=== PATIENT | female | born 1970 | race Hispanic/Latino ===

== ENCOUNTER 2025-05-30 12:00 | Emergency (ER) | payer BC ==
[~2025-05-30] VITALS: Ht 152.4 cm; Wt 80.3 kg
[2025-05-30 12:29] LABS: IMMATURE GRANULOCYTE ABSOLUTE 0.02 K/uL (0-1); NUCLEATED RED BLOOD CELLS 0.0 % (0.0-0.19); PLATELET COUNT (AUTO) 280 K/uL (130-400); RED BLOOD CELL COUNT(AUTO) 4.42 MIL/uL (4.00-5.50); RED CELL DISTRIBUTION WIDTH 13.6 % (11.0-15.5); WHITE BLOOD COUNT (AUTO) 7.1 K/uL (4.8-10.8)
[2025-05-30 12:48] LABS: CREATININE 0.7 mg/dL (0.5-1.0); GLOMERULAR FILTR. RATE CALC 102.0 mL/min (>90); GLUCOSE,RANDOM 92.0 mg/dL (70-105); SODIUM SERUM 139.0 mmol/L (136-145); UREA NITROGEN, BLOOD 17.0 mg/dL (7-18)
[2025-05-30] MEDS: 0.9%NACL 1000ML 1,000 ML IV STA (13:25)
[2025-05-30 13:44] LABS: APPEARANCE,URINE CLEAR (CLEAR); GLUCOSE, URINE (UA) NEGATIVE (NEGATIVE); LEUKOCYTE ESTERASE ,URINE NEGATIVE Leu/uL (NEGATIVE); NITRATE,URINE NEGATIVE (NEGATIVE); OCCULT BLOOD,URINE NEGATIVE (NEGATIVE)
[2025-05-30 13:45] LABS: ADD UA MICROSCOPIC NO
[2025-05-30] MEDS ORDERED: IOHEXOL-350 75 ML VIAL IV ONE (14:33)
--- NOTE | 2025-05-30 16:13 | HMCIMG ---
EXAMINATION: CT Scan of the Abdomen and Pelvis With Contrast CLINICAL INDICATION: Lower abdominal pain. TECHNIQUE: CT of the abdomen and pelvis was performed following intravenous administration of contrast material. Axial images with multiplanar reformations were obtained. Delayed images at approximately 7 minutes were acquired to assess urinary excretion. COMPARISON: No prior studies are available for comparison. RADIATION DOSE: CTDIvol: 27.2 mGy DLP: 1559.40 mGycm Contrast dose: 75 mL of iodinated intravenous contrast administered. FINDINGS: Lung Bases: Bibasilar streaky atelectasis is noted. Liver: There is a calcific nodule in segment VII, consistent with a calcified granuloma. No focal enhancing hepatic lesion is identified. Gallbladder and Biliary System: Gallbladder is unremarkable. No biliary ductal dilatation is seen. Pancreas: A cystic lesion is present in the distal body of the pancreas measuring approximately 1.7 0.5 cm. No associated peripancreatic fat stranding or fluid collection is identified. The pancreatic duct is not dilated, and no intraductal calculi are seen. Spleen: A splenule measuring approximately 1.3 cm is identified. The spleen is otherwise unremarkable. Adrenal Glands: Both adrenal glands are unremarkable. Kidneys and Ureters: Both kidneys demonstrate normal size and enhancement. No renal calculi or hydronephrosis is identified. Delayed images demonstrate symmetric contrast excretion through both kidneys and ureters without hydroureteronephrosis. Abdominal Aorta: The abdominal aorta is unremarkable without evidence of aneurysm or dissection. Bowel: Scattered colonic diverticula are present without evidence of diverticulitis. No bowel obstruction is identified. Appendix: The appendix measures approximately 6 mm in diameter without imaging features of acute appendicitis (series 2, image 53 of 106). Mesentery and Lymph Nodes: Few mildly enlarged mesenteric lymph nodes are seen, measuring up to 6 mm, demonstrating homogeneous enhancement. Pelvic Viscera: The uterus is surgically absent. The adnexa are unremarkable. Bones: Degenerative changes are present in the spine. There is mild retrolisthesis of L5 over S1. IMPRESSION: * No acute intra-abdominal fluid collection/fat stranding/urolithiasis. * Cystic lesion in the distal body of the pancreas measuring 1.7 0.5 cm, without associated inflammatory changes or pancreatic ductal dilatation. This is likely to be a side branch IPMN. Recommend follow up with MRI eye. * Scattered colonic diverticula without diverticulitis. * Degenerative changes of the lumbar spine with mild retrolisthesis of L5 over S1. /Calera
--- NOTE | 2025-05-30 16:40 | ERN ---
ED Note History of Present Illness Stated Complaint: PELVIC PAIN R/T COCCYX PAIN Chief Complaint: Pelvic Pain Time Seen by MD: 12:11 Time Seen by Midlevel: 12:15 Dictation: 54 old female with no past medical history and surgical history and return to de coming in complaining of lower back pain around her sacral area and suprapubic pain. Patient states a year ago she has a fall where she states she broke her tailbone. Patient states he has not had any recent trauma states the pain started today. Denies any saddle paresthesias, bladder or bowel incontinence, weakness, or any numbness or tingling. Allergies: Coded Allergies: No Known Allergies (Unverified Allergy, Unknown, 05/30/25) Past Medical History Past Medical History: No Pertinent History Surgical History: Hysterectomy Review of System Dictation Constitutional: Negative for fever,chills, and weight loss Eyes: Negative for injury, pain,redness, and discharge ENT: Negative for injury,pain or swelling Cardiovascular: Negative for chest pain, palpitations, and edema Respiratory: Negative for shortness of breath, cough, and wheezing, Abdomen/GI: Negative for abdominal pain, nausea, vomiting, diarrhea, and constipation Back: Complaining of sacral pain : Negative for injury, bleeding and discharge MS/Extremity: Negative for injury and deformity Skin: Negative for rash, and discoloration Neuro: Negative for headache, weakness, numbness, tingling, and seizure Psych: Negative for suicide ideation, homicidal ideation, and hallucinations Review of Systems: was completed Initial Vital Sign VS Vital Signs Date Time Temp Pulse Resp B/P (MAP) Pulse Ox O2 Delivery O2 Flow Rate FiO2 05/30/25 12:02 97.9 74 16 164/96 99 Room Air 0 Physical Exam Dictation General: awake, alert, NAD Head/Face: Normocephalic, atraumatic Eyes: PERRL, EOMI, vision at baseline ENT: oral cavity clear, TMs clear, no signs of infection Neck: Trachea midline, supple, no nuchal rigidity Cardiovascular: RRR, normal S1/S2, No MRGs, no JVD Respiratory: CTAB, no respiratory distress, No rales or wheezes Abdomen: Soft, non-tender, non-distended, normal bowel sounds, no guarding or rebound. Skin: Warm, dry, normal turgor, no rash MS/Extremity: Pulses equal, no cyanosis, neurovascular intact, FROM, back pain exacerbated by movement Neuro: COAx4, GCS 15, strength 5/5, CN 2-12 intact, normal cerebellar exam, normal gait, Psych: Normal behavior, mood, and affect normal Results (Laboratory/Radiology) Laboratory/Radiology Laboratory Tests Test 05/30/25 12:23 05/30/25 12:45 White Blood Count 7.1 K/uL (4.8-10.8) Red Blood Count 4.42 MIL/uL (4.00-5.50) Hemoglobin 13.3 g/dL (12.0-16.0) Hematocrit 41.0 % (36-48) Mean Corpuscular Volume 92.8 fL (79-99) Mean Corpuscular Hemoglobin 30.1 pg (27.0-33.0) Mean Corpuscular Hemoglobin Concent 32.4 g/dL (32.0-36.0) Red Cell Distribution Width 13.6 % (11.0-15.5) Platelet Count 280 K/uL (130-400) Mean Platelet Volume 9.6 fL (7.5-10.5) Immature Granulocyte % (Auto) 0.3 % (0-1) Neutrophils (%) (Auto) 64.9 % (40.0-77.0) Lymphocytes (%) (Auto) 26.5 % (21.0-51.0) Monocytes (%) (Auto) 6.2 % (3.0-13.0) Eosinophils (%) (Auto) 1.5 % (0.0-8.0) Basophils (%) (Auto) 0.6 % (0.0-5.0) Neutrophils # (Auto) 4.6 K/uL (1.8-7.7) Lymphocytes # (Auto) 1.9 K/uL (1.0-4.8) Monocytes # (Auto) 0.4 K/uL (0.1-1.0) Eosinophils # (Auto) 0.11 K/uL (0.00-0.70) Basophils # (Auto) 0.04 K/uL (0.00-0.20) Absolute Immature Granulocyte (auto 0.02 K/uL (0-1) Nucleated Red Blood Cells 0.0 % (0.0-0.19) Sodium Level 139 mmol/L (136-145) Potassium Level 4.2 mmol/L (3.5-5.1) Chloride Level 105 mmol/L (101-111) Carbon Dioxide Level 28 mmol/L (21-32) Blood Urea Nitrogen 17 mg/dL (7-18) Creatinine 0.7 mg/dL (0.5-1.0) Glomerular Filtration Rate Calc 102 mL/min (>90) Random Glucose 92 mg/dL (70-105) Total Calcium 9.0 mg/dL (8.5-10.1) Urine Color COLORLESS (YELLOW) Urine Appearance CLEAR (CLEAR) Urine pH 5.5 (5.0-8.0) Urine Specific Butternut 1.007 (1.001-1.031) Urine Protein NEGATIVE mg/dL (NEGATIVE) Urine Glucose (UA) NEGATIVE mg/dL (NEGATIVE) Urine Ketones NEGATIVE mg/dL (NEGATIVE) Urine Occult Blood NEGATIVE (NEGATIVE) Urine Nitrate NEGATIVE (NEGATIVE) Urine Bilirubin NEGATIVE mg/dL (NEGATIVE) Urine Urobilinogen 0.2 mg/dL (0.2-1.0) Urine Leukocyte Esterase NEGATIVE Yanet/uL Urine HCG, Qualitative NEGATIVE (NEGATIVE) Labs Reviewed?: Yes CT Scan Comment: [place] [id number] [address] IMAGING REPORT Signed PATIENT: DEBBIE BARNEY MR#: [id number] : 1970 SEX: F AGE: 54 LOCATION: [facility] ORDER STATUS: [facility] REPORT#: [id number] SERVICE [id number] REASON: lower abdominal pain ORDERING PHYSICIAN: KAYA ROSENBAUM CNP PROCEDURE: ABD PEL W - CT ABDOMEN/PELVIS W/CONTRAST EXAMINATION: CT Scan of the Abdomen and Pelvis With Contrast CLINICAL INDICATION: Lower abdominal pain. TECHNIQUE: CT of the abdomen and pelvis was performed following intravenous administration of contrast material. Axial images with multiplanar reformations were obtained. Delayed images at approximately 7 minutes were acquired to assess urinary excretion. COMPARISON: No prior studies are available for comparison. RADIATION DOSE: CTDIvol: 27.2 mGy DLP: 1559.40 mGycm Contrast dose: 75 mL of iodinated intravenous contrast administered. FINDINGS: Lung Bases: Bibasilar streaky atelectasis is noted. Liver: There is a calcific nodule in segment VII, consistent with a calcified granuloma. No focal enhancing hepatic lesion is identified. Gallbladder and Biliary System: Gallbladder is unremarkable. No biliary ductal dilatation is seen. Pancreas: A cystic lesion is present in the distal body of the pancreas measuring approximately 1.7 0.5 cm. No associated peripancreatic fat stranding or fluid collection is identified. The pancreatic duct is not dilated, and no intraductal calculi are seen. Spleen: A splenule measuring approximately 1.3 cm is identified. The spleen is otherwise unremarkable. Adrenal Glands: Both adrenal glands are unremarkable. Kidneys and Ureters: Both kidneys demonstrate normal size and enhancement. No renal calculi or hydronephrosis is identified. Delayed images demonstrate symmetric contrast excretion through both kidneys and ureters without hydroureteronephrosis. Abdominal Aorta: The abdominal aorta is unremarkable without evidence of aneurysm or dissection. Bowel: Scattered colonic diverticula are present without evidence of diverticulitis. No bowel obstruction is identified. Appendix: The appendix measures approximately 6 mm in diameter without imaging features of acute appendicitis (series 2, image 53 of 106). Mesentery and Lymph Nodes: Few mildly enlarged mesenteric lymph nodes are seen, measuring up to 6 mm, demonstrating homogeneous enhancement. Pelvic Viscera: The uterus is surgically absent. The adnexa are unremarkable. Bones: Degenerative changes are present in the spine. There is mild retrolisthesis of L5 over S1. IMPRESSION: * No acute intra-abdominal fluid collection/fat stranding/urolithiasis. * Cystic lesion in the distal body of the pancreas measuring 1.7 0.5 cm, without associated inflammatory changes or pancreatic ductal dilatation. This is likely to be a side branch IPMN. Recommend follow up with MRI eye. * Scattered colonic diverticula without diverticulitis. * Degenerative changes of the lumbar spine with mild retrolisthesis of L5 over S1. /White DICTATED BY: RIVERA VELASQUEZ MD DATE: 05/30/251710 ELECTRONICALLY SIGNED BY: RIVERA VELASQUEZ MD DATE: 05/30/251710 ED Course ED Course Orders Procedure Category Date Status Time Cbc With Differential LAB 05/30/25 Complete 12:16 Basic Metabolic Panel LAB 05/30/25 Complete 12:16 Urinalysis Profile LAB 05/30/25 Complete 12:16 Ct Abdomen/Pelvis CT 05/30/25 Resulted W/Contrast 12:16 0.9%Nacl 1000ml (Ns PHA 05/30/25 In Process 1000ml) 12:16 Ondansetron 4mg Inj PHA 05/30/25 Complete (Zofran 4mg Inj) 12:16 Ketorolac PHA 05/30/25 Complete Tromethamine 15mg/Ml 12:30 ,Urine Test LAB 05/30/25 Complete 14:19 Iohexol (Omnipaque) PHA 05/30/25 Complete 14:33 Current Medications Medications (Trade) Dose Ordered Sig/Sam[place] Route PRN Reason Start Time Stop Time Status Last Admin Dose Admin Iohexol (Omnipaque) 75 ml STK-MED ONCE IV 05/30/25 14:33 05/30/25 14:33 DC Ketorolac Tromethamine (toRADol) 15 mg ONCE ONCE IV 05/30/25 12:30 05/30/25 12:31 DC 05/30/25 13:25 Ondansetron HCl (zoFRAN 4MG INJ) 4 mg ONCE STAT IVP 05/30/25 12:16 05/30/25 12:20 DC 05/30/25 13:24 Sodium Chloride 1,000 ml @ 100 mls/hr Q10H STAT IV 05/30/25 12:16 05/30/25 22:15 05/30/25 13:25 Vital Signs Date Time Temp Pulse Resp B/P (MAP) Pulse Ox O2 Delivery O2 Flow Rate FiO2 05/30/25 12:02 97.9 74 16 164/96 99 Room Air 0 Medical Decision Making MDM MDM: 54 old female with no past medical history and surgical history and return to de coming in complaining of lower back pain around her sacral area and suprapubic pain. Patient states a year ago she has a fall where she states she broke her tailbone. Patient states he has not had any recent trauma states the pain started today. Denies any saddle paresthesias, bladder or bowel incontinence, weakness, or any numbness or tingling. CBC shows no leukocytosis, no anemia, no thrombocytopenia. Chemistries unremarkable. UA shows no evidence of urinary tract infection. CT scan of the abdomen and pelvis shows no acute intra-abdominal fluid collection, fat stranding or ureterolithiasis. Cystic lesion in the distal body of the pa ncreas. Scattered colonic diverticula without diverticulitis, degenerative changes of the lumbar spine with a mild retrolisthesis of L5 over S1. mildly enlarged mesenteric lymph nodes are seen. All these findings were discussed with the patient. Educated patient the importance to falling the PCP, educated on when to return back to the hospital like fever, nausea, vomiting, has been, which has been improved, tingling to extremities, bowel incontinence. Differential diagnosis: UTI, chronic back pain, acute abdomen Rationale: Tests considered and ordered secondary to shared decision making include: Previous outside records reviewed: Old ER visits. Risk of complication and/or morbidity or mortality of patient management: None Medications-Per medication reconciliation Need for hospitalization: Patient does not meet criteria for hospitalization. Need for emergency major/minor surgery: No There are no social concerns with this patient. Prescription drug management Prescriptions will include symptomatic care Patient's prior external medical records from other ER visits were reviewed by me as indicated. Prior testing and results from previous visits were reviewed. Prior tests were taken into account with medical decision making and resource utilization, independent historian/historians were used to obtain complete medical history. I independently interpreted the test that were performed, results were reviewed by me and considered findings on radiology if ordered. Medical management and examination interpretation discussions were had by me with other qualified healthcare professionals as indicated for the patient's care. DX & DISP Disposition: Discharge Departure Impression: Primary Impression: Mesenteric adenitis Additional Impressions: Retrolisthesis of vertebrae, Pancreas cyst Condition: Stable Additional Instructions: Seguir jxa barbour en 1-2 dawson. Regrese si gurjit symptomas empeoran. Referrals: CLAIRE VÁSQUEZ [facility] (PCP) Time of Disposition: 16:39 I have reviewed the case, and I agree with, Diagnosis and Plan KAYA ROSENBAUM [facility] May 30, 2025 16:40
[2025-05-30 17:24] VITALS: BP 151/87; PULSE 70; RESP 16; TEMP 97.9; O2SAT 99
== END 2025-05-30 17:30 | disposition home or self-care (01) ==
LOC: EDH 12:00
DX: M43.17 Spondylolisthesis, lumbosacral region (principal); I88.0 Nonspecific mesenteric lymphadenitis; K86.2 Cyst of pancreas; Z90.710 Acquired absence of both cervix and uterus
CPT/HCPCS: 99284; 74177; 96374; 96361; 96375; 80048; 85025; 81003; 81025; 36415; J1885; J7030; J2405; Q9967